=== PATIENT | female | born 1965 | race Caucasian/White ===

== ENCOUNTER 2024-02-07 21:07 | Inpatient (IN) | payer MEDICAID ==
[~2024-02-07] VITALS: Ht 165.1 cm; Wt 87.1 kg
[2024-02-07 21:15] VITALS: BP 149/70; PULSE 74; RESP 17; TEMP 97.7; O2SAT 97
[2024-02-07 22:59] LABS: BASOPHILS # (AUTO) 0.1 K/uL (0.00-0.22); EOSINOPHILS # (AUTO) 0.5 K/uL (0-0.4); EOSINOPHILS % (AUTO) 5.8 % (0.0-4.0); HEMATOCRIT 40.8 % (36-48); HEMOGLOBIN 13.9 g/dL (12.0-16.0); LYMPHOCYTES # (AUTO) 3.8 K/uL (2.5-16.5); LYMPHOCYTES % (AUTO) 44.3 % (20.5-51.1); MEAN CORPUSCULAR HEMOGLOBIN 32 pg (27-31); MEAN CORPUSCULAR HGB CONC 34 g/dL (33-37); MONOCYTES # (AUTO) 0.9 K/uL (0.8-1.0); NEUTROPHILS # (AUTO) 3.3 K/uL (1.8-7.7); NEUTROPHILS % (AUTO) 38.9 % (42.2-75.2); PLATELET COUNT (AUTO) 240 K/uL (140-450); RED BLOOD CELL COUNT(AUTO) 4.39 MIL/uL (4.20-5.40); RED CELL DISTRIBUTION WIDTH 13.9 % (11.6-13.7); WHITE BLOOD COUNT (AUTO) 8.5 K/uL (4.8-10.8)
[2024-02-07 23:22] LABS: ALBUMIN 3.3 g/dL (3.4-5.0); ANION GAP 10.6 (8-16); CALCIUM 8.7 mg/dL (8.5-10.1); CARBON DIOXIDE 28.4 mmol/L (21-32); CREATININE 0.8 mg/dL (0.6-1.3); PHOSPHORUS 4.5 mg/dL (2.5-4.9); TOTAL BILIRUBIN 0.3 mg/dL (0.0-1.0); TOTAL PROTEIN, SERUM 8.5 g/dL (6.4-8.2)
[2024-02-08] VITALS (9 sets, daily range): BP systolic 120–176; BP diastolic 65–93; PULSE 56–80; RESP 18–22; TEMP 97; O2SAT 95–100
[2024-02-08] MEDS: GABAPENTIN 300 MG CAP PO ONE (00:59)
[2024-02-08] MEDS: ACETAMINOPHEN EXTRA STRENGTH 500 MG TAB PO ONE (00:59)
[2024-02-08] MEDS: ASPIRIN 325 MG TAB PO ONE (04:10)
[2024-02-08 05:00] LABS: INR 1.03 (0.8-1.2); PARTIAL THROMBOPLASTIN TIME 22.4 secs (22-35.6); PROTHROMBIN TIME 10.8 secs (10.8-13.4)
[2024-02-08 05:05] LABS: CHOL/HDL RATIO 3.7 (1-4.5); CHOLESTEROL 168 mg/dL (<200); HDL CHOLESTEROL 45 mg/dL (40-60); LDL (CALC) 101 mg/dL (60-100); TRIGLYCERIDES 114 mg/dL (30-150)
[2024-02-08] MEDS ORDERED: LOSA-272 PO (06:46)
[2024-02-08] MEDS ORDERED: LORA10TA19 PO (06:46)
[2024-02-08] MEDS ORDERED: ATOR40TA40 PO (06:46)
[2024-02-08] MEDS ORDERED: FENO145T PO (06:46)
[2024-02-08] MEDS ORDERED: CHOL50005 PO (06:46)
[2024-02-08] MEDS ORDERED: EMPA10TA PO (06:46)
[2024-02-08] MEDS ORDERED: HYDROcodone/APAP 5/325 MG 1 TAB TAB PO PRN (09:10)
[2024-02-08] MEDS ORDERED: POTASSIUM CHLORIDE 10 MEQ TABER PO PRN (09:10)
[2024-02-08] MEDS ORDERED: POLYETHYLENE GLYCOL 17 GM/PKT PO PRN (09:10)
[2024-02-08] MEDS ORDERED: ONDANSETRON 4 MG/2 ML VIAL IVP PRN (09:10)
[2024-02-08] MEDS ORDERED: MELATONIN 3 MG TAB PO PRN (09:10)
[2024-02-08] MEDS ORDERED: MAG SULF 2000 MG/WATER PREMIX 50 ML IV PRN (09:10)
[2024-02-08] MEDS ORDERED: DEXTROSE 50% 50 ML SYR IVP PRN (09:15)
[2024-02-08] MEDS: DEXT 5% / NACL 0.45% 1,000 ML IV SCH (09:39)
[2024-02-08] MEDS: MORPHINE SULFATE 2 MG/ML SYR IVP PRN (09:43)
[2024-02-08] MEDS: BLOOD GLUCOSE MONITORING 1 DEV DEV FS SCH (11:27)
[2024-02-08] MEDS: LOSARTAN 50 MG TAB PO SCH (12:41)
[2024-02-08] MEDS ORDERED: hydrALAZINE 20 MG/ML VIAL IVP PRN (16:00)
[2024-02-08] MEDS: amLODIPine 5 MG TAB PO SCH (16:18)
[2024-02-08] MEDS: ACETAMINOPHEN 325 MG TAB PO PRN (20:22)
[2024-02-08] MEDS: INSULIN LISPRO SLIDING SCALE 100 UNITS/ML VIAL SUBQ PRN (20:27)
[2024-02-09] VITALS (7 sets, daily range): BP systolic 100–138; BP diastolic 53–74; PULSE 52–98; RESP 20–21; TEMP 97.3–98; O2SAT 95–98
[2024-02-09 06:33] LABS: BASOPHILS % (AUTO) 0.4 % (0.0-2.0); EOSINOPHILS # (AUTO) 0.4 K/uL (0-0.4); HEMATOCRIT 38.7 % (36-48); HEMOGLOBIN 13.6 g/dL (12.0-16.0); LYMPHOCYTES # (AUTO) 3.2 K/uL (2.5-16.5); LYMPHOCYTES % (AUTO) 50.7 % (20.5-51.1); MEAN CORPUSCULAR HEMOGLOBIN 32 pg (27-31); MEAN CORPUSCULAR HGB CONC 35 g/dL (33-37); MEAN CORPUSCULAR VOLUME 92.5 fL (80-94); MONOCYTES # (AUTO) 0.6 K/uL (0.8-1.0); MONOCYTES % (AUTO) 9.4 % (1.7-9.3); NEUTROPHILS # (AUTO) 2.1 K/uL (1.8-7.7); NEUTROPHILS % (AUTO) 32.5 % (42.2-75.2); PLATELET COUNT (AUTO) 219 K/uL (140-450); RED BLOOD CELL COUNT(AUTO) 4.19 MIL/uL (4.20-5.40); RED CELL DISTRIBUTION WIDTH 13.7 % (11.6-13.7); WHITE BLOOD COUNT (AUTO) 6.4 K/uL (4.8-10.8)
[2024-02-09 06:58] LABS: ALBUMIN 2.8 g/dL (3.4-5.0); ANION GAP 11.5 (8-16); CARBON DIOXIDE 25.8 mmol/L (21-32); CREATININE 0.8 mg/dL (0.6-1.3); PHOSPHORUS 3.6 mg/dL (2.5-4.9); POTASSIUM 4.3 mmol/L (3.5-5.1); TOTAL BILIRUBIN 0.2 mg/dL (0.0-1.0); TOTAL PROTEIN, SERUM 7.5 g/dL (6.4-8.2)
[2024-02-09] MEDS ORDERED: NON-FORMULARY ITEM (Atorvastatin Calcium 40 MG) PO SCH (09:00)
[2024-02-09] MEDS: LOSARTAN 50 MG TAB PO SCH (10:19)
[2024-02-09] MEDS: ATORVASTATIN 20 MG TAB PO SCH (10:19)
[2024-02-09] MEDS: ECOTRIN 81 MG TABEC PO SCH (10:19)
[2024-02-09] MEDS: LORazepam 1 MG TAB PO SCH (11:50)
[2024-02-10] VITALS: BP 130/64; PULSE 81; RESP 19; TEMP 97.4; O2SAT 98
[2024-02-10 04:00] VITALS: BP 109/54; PULSE 63; PULSE 85; RESP 18; TEMP 97.4; O2SAT 100
[2024-02-10 07:34] LABS: BASOPHILS % (AUTO) 0.4 % (0.0-2.0); EOSINOPHILS # (AUTO) 0.4 K/uL (0-0.4); EOSINOPHILS % (AUTO) 5.3 % (0.0-4.0); HEMATOCRIT 40.2 % (36-48); HEMOGLOBIN 13.8 g/dL (12.0-16.0); LYMPHOCYTES # (AUTO) 3.3 K/uL (2.5-16.5); LYMPHOCYTES % (AUTO) 41.5 % (20.5-51.1); MEAN CORPUSCULAR HEMOGLOBIN 32 pg (27-31); MEAN CORPUSCULAR HGB CONC 34 g/dL (33-37); MEAN CORPUSCULAR VOLUME 92.3 fL (80-94); MONOCYTES # (AUTO) 0.7 K/uL (0.8-1.0); NEUTROPHILS # (AUTO) 3.4 K/uL (1.8-7.7); NEUTROPHILS % (AUTO) 43.8 % (42.2-75.2); PLATELET COUNT (AUTO) 238 K/uL (140-450); RED BLOOD CELL COUNT(AUTO) 4.35 MIL/uL (4.20-5.40); RED CELL DISTRIBUTION WIDTH 14.1 % (11.6-13.7); WHITE BLOOD COUNT (AUTO) 7.9 K/uL (4.8-10.8)
[2024-02-10 08:00] VITALS: BP 128/71; PULSE 94; PULSE 98; RESP 20; TEMP 97.5; O2SAT 97
[2024-02-10 08:03] LABS: ANION GAP 12.8 (8-16); CALCIUM 7.9 mg/dL (8.5-10.1); CARBON DIOXIDE 24.4 mmol/L (21-32); CREATININE 0.7 mg/dL (0.6-1.3); MAGNESIUM 1.9 mg/dL (1.8-2.4); PHOSPHORUS 3.6 mg/dL (2.5-4.9); POTASSIUM 4.2 mmol/L (3.5-5.1); TOTAL BILIRUBIN 0.3 mg/dL (0.0-1.0); TOTAL PROTEIN, SERUM 7.8 g/dL (6.4-8.2)
[2024-02-10 12:00] VITALS: BP 119/71; PULSE 79; PULSE 98; RESP 20; TEMP 97.3; O2SAT 97
[2024-02-10 12:37] LABS: APPEARANCE,URINE CLEAR (CLEAR); BILIRUBIN,URINE NEGATIVE (NEGATIVE); BLOOD, URINE TRACE-I (NEGATIVE); COLOR,URINE YELLOW (YELLOW); LEUKOCYTE ESTERASE ,URINE NEGATIVE (NEGATIVE); NITRITE, URINE NEGATIVE (NEGATIVE); PROTEIN,URINE NEGATIVE (NEGATIVE); UGLUCOSE NEGATIVE (NEGATIVE); UROBILINOGEN,URINE 0.2 EU/dL (0.2 - 1)
[2024-02-10] MEDS ORDERED: ASPI-1856 PO (15:44)
[2024-02-10] MEDS ORDERED: AMLO-3 PO (15:44)
[2024-02-10 16:00] VITALS: BP 112/67; PULSE 81; RESP 18; TEMP 97.1; O2SAT 100
[2024-02-10 16:09] VITALS: BP 119/71; PULSE 98; RESP 20; TEMP 97.3
== END 2024-02-10 18:30 | disposition home or self-care (01) | DRG 54 ==
LOC: MED 21:07 → MTU 02-08 05:22 → OBSVTOIN 02-08 16:45 → MTU 02-08 17:35
PROVIDERS: ADMIT Student in an Organized Health Care Education/Training Program; ATTEND Student in an Organized Health Care Education/Training Program
DX: G43.809 Other migraine, not intractable, without status migrainosus (principal); E44.1 Mild protein-calorie malnutrition; I10 Essential (primary) hypertension; Z90.710 Acquired absence of both cervix and uterus; Z90.49 Acquired absence of other specified parts of digestive tract; Z79.899 Other long term (current) drug therapy; Z68.33 Body mass index [BMI] 33.0-33.9, adult
CPT/HCPCS: 36415; 70450; 71045; 80053; 81003; 82948; 83036; 83735; 84100; 84484; 85025; 85610; 85730; 87081; 92526; 93005; 97110; 97112; 97116; 97163-GP; 97530; J1815; J2270; Q0092; Q9967